=== PATIENT | female | born 1985 | race African-American/Black ===

== ENCOUNTER 2016-09-09 20:53 | Emergency (ER) | payer BC ==
[~2016-09-09] VITALS: Ht 162.6 cm; Wt 60.8 kg
[~2016-09-09 20:53] MED LIST: A/B OTIC OT; ANUSOL-HC2.5 % RE; ANUSOL-HC25 MG RE; BACTRIM DS1 TAB PO; CIPROFLOXACN500 MG PO; KEFLEX500 MG OR; LORTAB 7.5 OR; LORTAB5 PO; MACROBID100 MG PO; MEDDOSEPAK PO; NAPROSYN375 MG PO; NAPROSYN500 MG PO; NO HOME MEDS; NO MEDS; OMEPRAZOLE20 MG PO; PHENERGAN25 MG/TAB PO; PROMETHAZINE HC25 MG PO; REGLAN10 MG PO; TORADOL PO; ULTRAM50 M1 PO; ULTRAM50 MG PO; ZOFRAN ODT4 MG PO; ZOFRAN ODT8 MG SL; ZOFRAN4 MG OR; ZOFRAN4 MG/TAB PO
[2016-09-09] MEDS ORDERED: TOBRAMYCIN0.3 % OD (21:15)
[2016-09-09] MEDS ORDERED: KEFLEX500 MG PO (21:15)
[2016-09-09 21:30] VITALS: BP 126/80
== END 2016-09-09 21:30 | disposition home or self-care (01) | DRG 125 ==
LOC: ED 20:53
DX: H00.011 Hordeolum externum right upper eyelid (principal)

== ENCOUNTER 2017-11-08 08:31 | Emergency (ER) | payer BC ==
[~2017-11-08] VITALS: Ht 162.6 cm; Wt 61.0 kg
[~2017-11-08 08:31] MED LIST changes: +KEFLEX500 MG PO; +TOBRAMYCIN0.3 % OD
[2017-11-08 09:18] LABS: HEMATOCRIT 38.2 % (37.0-47.0); HEMOGLOBIN 12.1 g/dl (12.0-16.0); IMMATURE GRANULOCYTES 0.2 % (0.0-1.0); MEAN CORPUSCULAR HGB 27.6 pG CALC (26.0-32.0); MEAN CORPUSCULAR HGB CONC 31.7 g/L CALC (32.0-36.0); NEUT# 3.06 thou/uL (2.00-7.15); RED BLOOD COUNT 4.39 mill/uL (4.20-5.60); RED CELL DISTRI WIDTH 13.8 % (11.5-15.5)
[2017-11-08 09:45] LABS: ALBUMIN 4.1 g/dL (3.2-5.0); ALKALINE PHOSPHATASE 43 u/l (38-126); ANION GAP 12 (6-22 (CALC)); BILIRUBIN, TOTAL 0.3 mg/dL (0.0-1.4); BUN 13 mg/dL (7-17); BUN/CREATININE RATIO 22 (12-20 (CALC)); CARBON DIOXIDE 25 mmol/l (22-30); CHLORIDE 111 mmol/l (95-108); CREATININE 0.6 mg/dL (0.5-1.0); GFR > 60 ML/MIN (>=60 (CALC)); GFR FOR AFR.AMER. > 60 ML/MIN (>=60 (CALC)); LIPASE 171 u/l (23-300); POTASSIUM 3.9 mmol/l (3.5-5.1); SGOT/AST 16 u/l (14-36); SGPT/ALT 22 u/l (9-52); SODIUM 143 mmol/l (137-146); TOTAL PROTEIN 7.3 g/dL (6.3-8.2)
[2017-11-08 10:33] LABS: URINE BILIRUBIN - DIPSTICK NEGATIVE (NEGATIVE); URINE BLOOD DIPSTICK LARGE (NEGATIVE); URINE COLOR YELLOW; URINE GLUCOSE - DIPSTICK NEGATIVE (NEGATIVE); URINE KETONE NEGATIVE (NEGATIVE); URINE LEUK ESTERASE NEGATIVE (NEGATIVE); URINE NITRITE - DIPSTICK NEGATIVE (Negative); URINE PROTEIN - DIPSTICK 30 mg/dL (NEG-TRACE); URINE SPECIFIC GRAVITY >=1.030; URINE UROBILINOGEN - DIPSTICK 0.2 E.U./dL (0.2)
[2017-11-08 10:47] LABS: URINE CLARITY SL CLOUDY
[2017-11-08 10:48] LABS: URINE EPITHELIAL CELLS FEW EPI/hpf (0-FEW); URINE RBC 25-50 RBC/hpf (0-5)
[2017-11-08] MEDS ORDERED: TORADOL PO (11:02)
[2017-11-08 11:04] VITALS: BP 101/62
== END 2017-11-08 11:11 | disposition home or self-care (01) | DRG 392 ==
LOC: ED 08:31
PROVIDERS: Emergency Medicine
DX: R10.33 Periumbilical pain (principal); F17.290 Nicotine dependence, other tobacco product, uncomplicated

== ENCOUNTER 2017-11-24 00:15 | Emergency (ER) | payer BC ==
[~2017-11-24] VITALS: Ht 152.4 cm; Wt 60.4 kg
[2017-11-24] MEDS ORDERED: KEFLEX500 MG PO (00:38)
[2017-11-24] MEDS ORDERED: PERCOCET 5/325M1 TAB PO (00:38)
[2017-11-24 01:08] VITALS: BP 107/65
== END 2017-11-24 01:00 | disposition home or self-care (01) | DRG 603 ==
LOC: ED 00:15
DX: L02.31 Cutaneous abscess of buttock (principal)

== ENCOUNTER 2017-12-18 20:03 | Emergency (ER) | payer BC ==
[~2017-12-18] VITALS: Ht 162.6 cm; Wt 61.0 kg
[~2017-12-18 20:03] MED LIST changes: +PERCOCET 5/325M1 TAB PO
[2017-12-18 20:50] VITALS: BP 112/79
[2017-12-18] MEDS ORDERED: CEPHALEXIN500 M1 PO (21:15)
[2017-12-18] MEDS ORDERED: BACTRIM DS1 TAB PO (21:15)
[2017-12-18] MEDS ORDERED: LORTAB 1010 MG PO (21:15)
== END 2017-12-18 20:50 | disposition home or self-care (01) | DRG 603 ==
LOC: ED 20:03
PROC: 0H98XZZ Drainage of Buttock Skin, External Approach (ICD-10-PCS; principal; 2017-12-18)
DX: L02.31 Cutaneous abscess of buttock (principal)

== ENCOUNTER 2017-12-19 21:22 | Emergency (ER) | payer BC ==
[~2017-12-19] VITALS: Ht 162.6 cm; Wt 61.0 kg
[~2017-12-19 21:22] MED LIST changes: +CEPHALEXIN500 M1 PO; +LORTAB 1010 MG PO
[2017-12-19 21:55] VITALS: BP 100/59
== END 2017-12-19 21:55 | disposition home or self-care (01) | DRG 951 ==
LOC: ED 21:22
DX: Z48.01 Encounter for change or removal of surgical wound dressing (principal); F17.210 Nicotine dependence, cigarettes, uncomplicated

== ENCOUNTER 2017-12-21 17:27 | Emergency (ER) | payer BC ==
[~2017-12-21] VITALS: Ht 162.6 cm; Wt 60.2 kg
[2017-12-21] MEDS ORDERED: ZOFRAN4 MG/TAB PO (17:52)
[2017-12-21 17:55] VITALS: BP 107/70
== END 2017-12-21 17:55 | disposition home or self-care (01) | DRG 951 ==
LOC: ED 17:27
DX: Z48.01 Encounter for change or removal of surgical wound dressing (principal); F17.290 Nicotine dependence, other tobacco product, uncomplicated

== ENCOUNTER 2018-08-03 10:28 | Emergency (ER) | payer BC ==
[~2018-08-03] VITALS: Ht 162.6 cm; Wt 61.6 kg
[2018-08-03] MEDS ORDERED: BACTRIM DS1 TAB PO (11:27)
[2018-08-03] MEDS ORDERED: CEPHALEXIN500 M1 PO (11:27)
[2018-08-03] MEDS ORDERED: LORTAB 1010 MG PO (11:27)
[2018-08-03 11:32] VITALS: BP 116/74
== END 2018-08-03 11:32 | disposition home or self-care (01) | DRG 603 ==
LOC: ED 10:28
PROC: 0H98XZZ Drainage of Buttock Skin, External Approach (ICD-10-PCS; principal; 2018-08-03)
DX: L02.31 Cutaneous abscess of buttock (principal); F17.290 Nicotine dependence, other tobacco product, uncomplicated

== ENCOUNTER 2018-08-14 08:04 | Day surgery (SDC) | payer BC ==
[~2018-08-14] VITALS: Ht 160 cm; Wt 61.2 kg
[2018-08-14 09:08] LABS: BARBITURATES NEGATIVE (NEGATIVE); COCAINE NEGATIVE (NEGATIVE); METHADONE NEGATIVE (NEGATIVE); OXCYCODONE NEGATIVE (NEGATIVE); TETRAHYDROCANNABIONOL POSITIVE (NEGATIVE); TRICYLIC ANTIDEPRESSANTS NEGATIVE (NEGATIVE)
[2018-08-14] MEDS ORDERED: PERCOCET 5/321 COMBO PO (10:38)
[2018-08-14 11:10] VITALS: BP 108/68
== END 2018-08-14 11:27 | disposition home or self-care (01) | DRG 572 ==
LOC: ORM 08:04
PROVIDERS: ATTEND Surgery
PROC: 0JB90ZZ Excision of Buttock Subcutaneous Tissue and Fascia, Open Approach (ICD-10-PCS; principal; 2018-08-14)
DX: L05.01 Pilonidal cyst with abscess (principal); F17.290 Nicotine dependence, other tobacco product, uncomplicated
CPT/HCPCS: J0131